=== PATIENT | female | born 1985 | race Caucasian/White ===

== ENCOUNTER 2017-10-08 03:15 | Observation (INO) | payer OTHER ==
--- NOTE | 2017-10-08 06:34 | OBPROG ---
Labor Progress Note Assessment/Plan: Assessment:cat 1 fhr hydration 1l water orally cat 1 fhr irregular contractions painful/ after hydration denies pain denies bleeding or leaking decreased movement/ after hydration feeling positive movement Plan:discharge to home with instructions to fu in clinic. Monitor movement,, discontinue at 31 weeks. 10/08/17 06:31 Subjective/Intrapartum Course: 10/08/17 06:29 Came in with complaint of regular contractions, pain, cramping and decreased movement. States still at 31 weeks. - Contraction Pattern Assessment Current Contraction Pattern: Irregular - FHR Assessment Parker FHR (bpm): 135 FHR Pattern Variability: Moderate FHR Category: 1 Oxytocin Orders Assessment - Pre-Induction/Augmentation Assessment Gestational Age: 83 week(s) and 0 day(s) ICD10 Worksheet Patient Problems: Problems Problem Status Onset decreased movement/irregular contr Acute
== END 2017-10-08 04:40 | disposition home or self-care (01) ==
LOC: FLD 03:15
PROVIDERS: ADMIT Advanced Practice Midwife; ATTEND Advanced Practice Midwife
DX: O36.8190 Decreased fetal movements, unspecified trimester, not applicable or unspecified (principal); Z3A.00 Weeks of gestation of pregnancy not specified
CPT/HCPCS: 59025; G0378

== ENCOUNTER 2017-12-03 16:53 | Observation (INO) | payer OTHER | END 2017-12-03 17:55 | disposition home or self-care (01) | LOC: FLD 16:53 → INTOOBSV 16:53 | PROVIDERS: ADMIT Obstetrics & Gynecology; ATTEND Obstetrics & Gynecology | DX: O46.93 Antepartum hemorrhage, unspecified, third trimester (principal); Z3A.38 38 weeks gestation of pregnancy | CPT/HCPCS: 59025; G0378 ==

== ENCOUNTER 2017-12-04 05:51 | Inpatient (IN) | payer OTHER ==
[2017-12-04] MEDS ORDERED: LR 1,000 ML IV PRN (06:13)
[2017-12-04] MEDS ORDERED: OXYTOCIN 20 UNIT in LR 1,000 ML IV PRN (06:13)
[2017-12-04] MEDS ORDERED: TERBUTALINE SULFATE 1 MG/ML VIAL IV PRN (06:13)
[2017-12-04] MEDS ORDERED: OLIVE OIL 118 ML BTL MISC PRN (06:13)
[2017-12-04] MEDS ORDERED: EPSOM SALT 454 GM TP PRN (06:13)
[2017-12-04] MEDS ORDERED: LR 500 ML IV PRN (06:14)
[2017-12-04] MEDS ORDERED: OXYTOCIN 30 UNIT in NS 500 ML IV SCH (06:15)
[2017-12-04 06:41] LABS: PLATELET COUNT 244 10^3/uL (150-400)
[2017-12-04] MEDS ORDERED: LIDOCAINE 1% 300 MG/30 ML SDV ONE (07:04)
[2017-12-04] MEDS ORDERED: AMMONIA AROMATIC 1 EACH AMP IH ONE (07:04)
[2017-12-04] MEDS ORDERED: TERBUTALINE SULFATE 1 MG/ML VIAL ONE (07:04)
[2017-12-04] MEDS ORDERED: OLIVE OIL 118 ML BTL ONE (07:04)
[2017-12-04] MEDS ORDERED: MISOPROSTOL 200 MCG TAB ONE (07:05)
[2017-12-04] MEDS ORDERED: OXYTOCIN 10 UNIT/ML VIAL ONE (07:05)
[2017-12-04] MEDS: AMPICILLIN SODIUM 1 GM in NS 50 ML IV SCH ×6 (07:55→21:05)
[2017-12-04] MEDS ORDERED: fentaNYL 100 MCG/2 ML INJ ONE (13:08)
[2017-12-04] MEDS ORDERED: BUPIVACAINE 0.5% 30 ML SDV ONE (13:08)
[2017-12-04] MEDS ORDERED: PHENYLEPHRINE HCL 100 MCG/ML SYR ONE (13:09)
[2017-12-04] MEDS ORDERED: fentaNYL 2MCG/ML/BUP 0.1% RTU 100 ML BAG EP ONE (13:09)
--- NOTE | 2017-12-04 13:10 | GHP ---
[f rep st] PREOP HISTORY AND PHYSICAL DATE OF ADMISSION: 12/04/2017 ADMITTING DIAGNOSES: Intrauterine at 39 weeks' gestation, with induction of labor secondary to suspected large for gestational age and polyhydramnios. HISTORY OF PRESENT ILLNESS: The patient is a 32-year-old 2, para 1-0-0- 1, with a last menstrual period of 03/06/2017, and an EDC of 12/11/2017, which was confirmed by a first-trimester ultrasound. She was a transfer of care to [facility] at 29 weeks. She moved from [place]. She has had good care. Her course has been complicated for large for gestational age. Most recent ultrasound revealed estimated weight of 90th percentile, as well as polyhydramnios. Most recent BUNNY was 24.9. The patient was monitored closely for her polyhydramnios with twice weekly nonstress test. Baby was reassuring, and patient was offered induction of labor at 39 weeks, which she accepted. Her cervix on admission is 3 cm, 50%, - 2 and she was admitted for Pitocin induction of labor. PAST OBSTETRICAL HISTORY: In July of 2014 she had a viable male, weight 7 pounds 8 ounces. He was an induction of labor. Had a long labor and 3- hour second stage, and this is her second . PAST GYNECOLOGICAL HISTORY: She has a remote history of abnormal Paps over 10 years ago. She had colposcopy. No other treatment. She also had a history of ovarian cyst with a Mirena IUD. No treatment or surgeries were necessary. She has a history of HSV-1, just cold sores. No genital outbreaks. Takes acyclovir or Valtrex as needed. No history of any sexually transmitted diseases. PAST MEDICAL HISTORY: None. PAST SURGICAL HISTORY: None. ALLERGIES: No known drug allergies. MEDICATION: vitamins, DHEA, and valacyclovir or acyclovir. LABS: O-positive, antibody negative, rubella immune, hepatitis negative, HIV negative, cystic fibrosis, SMA, fragile X negative, Verifi was negative. First- trimester screen negative. Pap normal. Gonorrhea and chlamydia normal. 1- hour GTT was 76. GBS is positive. SOCIAL HISTORY: She is . She lives with her and her son. She is self-employed. She denies tobacco, alcohol, and drug use. FAMILY HISTORY: Father has hypercholesterolemia. Maternal grandmother had a stroke. Nothing else significant. REVIEW OF SYSTEMS: Negative today. PHYSICAL EXAMINATION: VITAL SIGNS: Currently, she is afebrile. Vital signs are stable. heart tones are 130s, reactive, moderate variability, category 1. She is elo every 2-3 minutes. She is on Pitocin. I just checked her cervix. She is 3 cm, 80%, -1 station, and AROM for a copious amount of clear fluid. ASSESSMENT AND PLAN: 32-year-old 2, para 1-0-0-1, at 39 weeks' gestation, for elective induction of labor secondary to suspected large for gestational age and polyhydramnios. The patient desires an epidural for pain control. Will have when she desires it in labor, and active labor management. status is reassuring. /[id number]/MODL MTDD
[2017-12-04] MEDS ORDERED: PHENYLEPHRINE HCL 100 MCG/ML SYR IVP PRN (13:46)
[2017-12-04] MEDS ORDERED: ONDANSETRON 4 MG/2 ML VIAL IVP PRN (13:46)
--- NOTE | 2017-12-04 13:46 | PREANESOB ---
Obstetric Pre-Anesthesia Info - General Info Proposed Procedure: KIM : 3 Para: 1 DEMETRIUS: 12/11/17 Gestational Age: 39 week(s) and 0 day(s) - Info Status: Full Term Monitors: External FHR Pattern: Reassuring - Labor Status Cervical Dilation per last OB SVE: 4 Station per last OB SVE: -1 Amniotic Fluid Color: Clear Labor Epidural: Proposed Anesthesia ROS: negative Allergies/Adverse Reactions: Allergy/AdvReac Type Severity Reaction Status Date / Time No Known Allergies Allergy Unverified 10/08/17 03:51 Visit Medications: Generic Name Dose Route Start Last Admin Trade Name Freq PRN Reason Stop Dose Admin Ampicillin Sodium 1 gm/ Sodium 50 mls @ 100 mls/hr 12/04/17 07:13 12/04/17 12 :05 Chloride IV 01/03/18 07:12 50 mls Q4H PINEDA Administration Protocol Lactated Ringer's 1,000 mls @ 0 mls/hr 12/04/17 06:13 12/04/17 07:00 Lr IV 12/05/17 06:12 1,000 mls PRN PRN Administration SEE PROTOCOL CONDITIONS Protocol Per Protocol Oxytocin 20 unit/ Lactated 1,002 mls @ 150 mls/hr 12/04/17 06:13 Ringer's IV PRN PRN Post- bleeding Lactated Ringer's 500 mls @ 500 mls/hr 12/04/17 06:14 Lr IV 12/05/17 06:14 PRN PRN Maternal Hypotension Oxytocin 30 unit/ Sodium 503 mls @ 0 mls/hr 12/04/17 06:15 12/04/17 07:35 Chloride IV 06/02/18 06:14 503 mls CONT PINEDA Administration Protocol Per Protocol Ibuprofen 600 mg 12/04/17 06:13 Motrin PO 06/02/18 06:12 Q6HRS PRN post , inflammation Magnesium Sulfate 454 gm 12/04/17 06:13 Epsom Salt TP 06/02/18 06:12 Q1H PRN perineal discomfort [place] Oil 118 ml 12/04/17 06:13 Sweet Oil MISC 06/02/18 06:12 ONCE PRN perineal massage Terbutaline Sulfate 0.25 mg 12/04/17 06:13 Brethine IV 06/02/18 06:12 ONCE PRN Tachysystole Discontinued Medications Generic Name Dose Route Start Last Admin Trade Name [place] PRN Reason Stop Dose Admin Ammonia (Aromatic Spirit) Confirm 12/04/17 07:04 Ammonia Aromatic Administered 12/04/17 07:05 Dose 1 each IH .STK-MED ONE Bupivacaine HCl Confirm 12/04/17 13:08 Sensorcaine 0.5% Vial Administered 12/04/17 13:09 Dose 30 ml .ROUTE .STK-MED ONE Fentanyl Confirm 12/04/17 13:08 Sublimaze Administered 12/04/17 13:09 Dose 100 mcg .ROUTE .STK-MED ONE Fentanyl/Bupivacaine HCl Confirm 12/04/17 13:09 Fentanyl/Bupivacaine/Ns 2 Mcg/Ml 0.1% (Premix Administered 12/04/17 13:10 Dose 100 ml EP .STK-MED ONE Ampicillin Sodium 1 gm/ Sodium 50 mls @ 100 mls/hr 12/04/17 06:15 12/04/17 07 :55 Chloride IV 12/04/17 07:14 50 mls Q30M PINEDA Administration Protocol Lidocaine HCl Confirm 12/04/17 07:04 Lidocaine Hcl 1% Administered 12/04/17 07:05 Dose 300 mg .ROUTE .STK-MED ONE Misoprostol Confirm 12/04/17 07:05 Cytotec Administered 12/04/17 07:06 Dose 1,000 mcg .ROUTE .STK-MED ONE [place] Oil Confirm 12/04/17 07:04 Sweet Oil Administered 12/04/17 07:05 Dose 118 ml .ROUTE .STK-MED ONE Oxytocin Confirm 12/04/17 07:05 Pitocin Administered 12/04/17 07:06 Dose 40 unit .ROUTE .STK-MED ONE Phenylephrine HCl Confirm 12/04/17 13:09 Neosynephrine Administered 12/04/17 13:10 Dose 1,000 mcg .ROUTE .STK-MED ONE Terbutaline Sulfate Confirm 12/04/17 07:04 Brethine Administered 12/04/17 07:05 Dose 1 mg .ROUTE .STK-MED ONE - Anesthesia History Response to Local Anesthetics: Normal Anesthesia & Operative History: No Prior Problems Family Anesthesia History: Not Applicable - Social History Substance Use/Abuse: Denies - Vital Signs Latest Vital Signs (Nursing): see nsg notes Height/Weight (Nursing): Height 152.4 cm Weight 90.265 kg - Focused Exam Neck exam: FROM Mallampati Score: Class 2 Mouth exam: normal dental/mouth exam Pulmonary: no respiratory distress Cardiovascular: regular rate and rhythym Labs: 12/04/17 06:25 Patient ABO/Rh O POSITIVE 12/04/17 06:25 - Plan Consent Signed and on Chart: Yes Patient/Guardian Understands and Agrees to Plan: Yes Urgent/Emergent Case: Zuleika mata completed preop but documented later for safe timely pt care
[2017-12-04] MEDS ORDERED: fentaNYL 2MCG/ML/BUP 0.1% RTU 100 ML EP SCH (14:00)
[2017-12-04] MEDS ORDERED: LR 500 ML IV SCH (14:00)
--- NOTE | 2017-12-04 14:46 | OBPROG ---
Labor Progress Note Assessment/Plan: Assessment: 32 y/o @ 39 weeks elective IOL secondary to LGA and polyhydramnios Plan: Pt comfortable with her epidural and making good cx progression. Will check in 2 hours or prn sooner. 12/04/17 14:46 Subjective/Intrapartum Course: 12/04/17 14:37 Pt is doing well now, comfortable with her epidural. Objective: 12/04/17 06:25 Patient ABO/Rh O POSITIVE 12/04/17 06:25 - SVE Dilation (cm): 7 Effacement (%): 90 Station: 0 Membranes: AROM Amniotic Fluid Color: Clear - Contraction Pattern Assessment Current Contraction Pattern: Regular (/q 2 ) - FHR Assessment Parker FHR (bpm): 130 FHR Pattern Variability: Moderate FHR Category: 1 - Procedures Non-surgical Procedures: Amniotomy - AP Antepartum Course: 12/04/17 14:38 transfer of care @ 29 weeks, h/o LGA and polyhydramnios Oxytocin Orders Assessment - Pre-Induction/Augmentation Assessment Gestational Age: 39 week(s) and 0 day(s) ICD10 Worksheet Patient Problems: Problems Problem Status Onset Encounter for elective induction of labor Acute - ICD10 Problem Qualifiers (1) Encounter for elective induction of labor
[2017-12-04] MEDS ORDERED: HYDROCORTISONE 0.5% CREAM TP PRN (17:31)
[2017-12-04] MEDS ORDERED: ACETAMINOPHEN 325 MG TAB PO PRN (17:31)
[2017-12-04] MEDS ORDERED: SIMETHICONE 80 MG TAB CHEW PO PRN (17:31)
[2017-12-04] MEDS ORDERED: HYDROCODONE/APAP 5/325 TAB PO PRN (17:31)
--- NOTE | 2017-12-04 17:35 | OBDEL ---
Info Type: Vaginal Presentation at Delivery: Vertex L&D Analgesia/Anesthesia Type: Epidural GBS+: Yes Antibiotic Used for + GBS: Ampicillin Intrapartum Medications: Generic Name Dose Route Start Last Admin Trade Name Freq PRN Reason Stop Dose Admin Ampicillin Sodium 1 gm/ Sodium 50 mls @ 100 mls/hr 12/04/17 07:13 12/04/17 15 :46 Chloride IV 01/03/18 07:12 50 mls Q4H PINEDA Administration Protocol Lactated Ringer's 1,000 mls @ 0 mls/hr 12/04/17 06:13 12/04/17 07:00 Lr IV 12/05/17 06:12 1,000 mls PRN PRN Administration SEE PROTOCOL CONDITIONS Protocol Per Protocol Oxytocin 30 unit/ Sodium 503 mls @ 0 mls/hr 12/04/17 06:15 12/04/17 07:35 Chloride IV 06/02/18 06:14 503 mls CONT PINEDA Administration Protocol Per Protocol Discontinued Medications Generic Name Dose Route Start Last Admin Trade Name Freq PRN Reason Stop Dose Admin Ampicillin Sodium 1 gm/ Sodium 50 mls @ 100 mls/hr 12/04/17 06:15 12/04/17 07 :55 Chloride IV 12/04/17 07:14 50 mls Q30M PINEDA Administration Protocol - Hospital Course Intrapartum: 12/04/17 14:37 Pt is doing well now, comfortable with her epidural. Indications for Delivery: Elective, Suspected Macrosomia (polyhydramnios) Vaginal Delivery - Delivery Provider Delivery Physician/CNM: Krista Peterson (Celsa Garcia RN in attendence precipitous delivery) - Labor and Delivery Onset of Contractions Date: 12/04/17 Onset of Contractions Time: 12:30 Onset of Contractions Type: Induced Rupture of Membranes Date: 12/04/17 Rupture of Membranes Time: 12:18 Rupture of Membranes Type: Artificial Amniotic Fluid Color: Clear Dilation Complete Date: 12/04/17 Dilation Complete Time: 15:50 Placenta Delivery Date: 12/04/17 Placenta Delivery Time: 17:17 Total Hours of Labor: 4 Non-surgical Procedures: Amniotomy Laceration: Other (Specify) (left vaginal wall polyp removed per patient request , repaired with 3-o vicryl) Repair: 2-0, 3-0, Vicryl Vaginal Sponge Count Correct: Yes Vaginal Needle Count Correct: Yes Vaginal Sweep Performed: No EBL: 250 Delivery Events: None - Medications Labor Augmentation/Induction Methods Used: Pitocin Labor Augmentation/Induction Indication: LGA, Other (Specify) (polyhydramnios) [place] Data DEMETRIUS: 12/11/17 Gestational Age: 39 week(s) and 0 day(s) Parker Delivery Date: 12/04/17 Delivery Time: 17:11 Sex of : Male Score (1 Min): 8 Score (5 Min): 9 ICD10 Worksheet Patient Problems: Problems Problem Status Onset Encounter for elective induction of labor Acute (spontaneous vaginal delivery) Acute - ICD10 Problem Qualifiers (1) Encounter for elective induction of labor (2) (spontaneous vaginal delivery)
[2017-12-04] MEDS: IBUPROFEN 600 MG TAB PO PRN (18:53)
[2017-12-05] MEDS: IBUPROFEN 600 MG TAB PO PRN ×4 (01:59→21:26)
[2017-12-05] MEDS: DOCUSATE SODIUM 100 MG CAP PO PRN ×2 (08:42→21:26)
--- NOTE | 2017-12-05 08:47 | OBPP ---
Progress Note Assessment/Plan: Assessment: s/p PPD # 1 - pt is stable Plan: Continue routine pp care Will discharge home if baby boy is discharged Instructions reviewed with pt No Rx given Cont PNV, colace Pelvic rest RTC in 4 and 6 weeks for pp visit 12/05/17 08:43 Objective: 12/04/17 06:25 Patient ABO/Rh O POSITIVE 12/04/17 06:25 Temp Pulse Resp BP Pulse Ox 36.4 C 87 99 H 97/66 L 16 L 12/05/17 07:52 12/05/17 07:52 12/05/17 07:52 12/05/17 07:52 12/05/17 07:52 Uterine Position/Fundal Height: Umbilicus -2 Uterine Tone: Firm Physical Exam - Physical Exam Respiratory: lungs clear, normal breath sounds Cardiac/Chest: regular rate, rhythm Abdomen: normal bowel sounds, non-tender, soft, flatus (+) Extremities: non-tender, normal inspection Skin: normal color, warm/dry Neuro/Psych: alert, normal mood/affect, oriented x 3
--- NOTE | 2017-12-05 08:48 | OBGCSDC ---
General Delivery Information - General Info : 3 Para: 2 Abortions: 1 Type: Vaginal L&D Analgesia/Anesthesia Type: Epidural Admission Date: 12/04/17 Labs: Patient ABO/Rh O POSITIVE 12/04/17 06:25 Hct 39.8 % (38.0-47.0) 12/04/17 06:25 - Hospital Course Antepartum: 12/04/17 14:38 transfer of care @ 29 weeks, h/o LGA and polyhydramnios Intrapartum: 12/04/17 14:37 Pt is doing well now, comfortable with her epidural. Vaginal - Delivery Provider Delivery Physician/CNM: Krista Peterson (Celsa Garcia RN in attendence precipitous delivery) - Diagnosis Labor: Induced Rupture of Membranes Type: Artificial Amniotic Fluid Color: Clear Laceration: Other (Specify) (left vaginal wall polyp removed per patient request , repaired with 3-o vicryl) Repair: 2-0, 3-0, Vicryl Delivery Events: None - Procedures Non-surgical Procedures: Amniotomy - Delivery Non-surgical Procedures: Amniotomy EBL: 250 Nelson Data DEMETRIUS: 12/11/17 Gestational Age: 39 week(s) and 1 day(s) Parker Delivery Date: 12/04/17 Delivery Time: 17:11 Sex of : Male Score (1 Min): 8 Score (5 Min): 9 Discharge Information - Discharge Information Condition: Good Instruction/Follow Up: Four Weeks, Six Weeks
[2017-12-06] MEDS: IBUPROFEN 600 MG TAB PO PRN ×2 (03:30→09:29)
[2017-12-06 08:41] VITALS: BP 114/72; PULSE 85; RESP 17; TEMP 96.9; O2SAT 96
[2017-12-06] MEDS: DOCUSATE SODIUM 100 MG CAP PO PRN (09:29)
--- NOTE | 2017-12-06 10:23 | OBPP ---
Progress Note Assessment/Plan: Assessment: PPD 2 s/p Plan: D/C home 12/06/17 10:20 Subjective/ Course: 12/06/17 10:21 Pt doing well. Baby has been latching well. [place] milk is starting to come in which is quicker than last baby. Bld is light. urinating fine. Cramps are tolerable with ibu. Objective: 12/04/17 06:25 Patient ABO/Rh O POSITIVE 12/04/17 06:25 Temp Pulse Resp BP Pulse Ox 36.1 C 85 17 114/72 96 12/06/17 08:00 12/06/17 08:00 12/06/17 08:00 12/06/17 08:00 12/06/17 08:00 Uterine Position/Fundal Height: Umbilicus -1 Uterine Tone: Firm Physical Exam - Physical Exam Abdomen: non-tender, soft Extremities: non-tender, pedal edema (moderate) Skin: normal color, warm/dry Neuro/Psych: alert, normal mood/affect
== END 2017-12-06 11:15 | disposition home or self-care (01) | DRG 775 ==
LOC: FLD 05:51 → FOB 20:00
PROVIDERS: ADMIT Obstetrics & Gynecology; ATTEND Obstetrics & Gynecology
PROC: 0UBGXZZ Excision of Vagina, External Approach (ICD-10-PCS; principal; 2017-12-04)
PROC: 10E0XZZ Delivery of Products of Conception, External Approach (ICD-10-PCS; principal; 2017-12-04)
PROC: 3E033VJ Introduction of Other Hormone into Peripheral Vein, Percutaneous Approach (ICD-10-PCS; principal; 2017-12-04)
PROC: 10907ZC Drainage of Amniotic Fluid, Therapeutic from Products of Conception, Via Natural or Artificial Opening (ICD-10-PCS; principal; 2017-12-04)
DX: O40.3XX0 Polyhydramnios, third trimester, not applicable or unspecified (principal); O36.63X0 Maternal care for excessive fetal growth, third trimester, not applicable or unspecified; O26.893 Other specified pregnancy related conditions, third trimester; N84.2 Polyp of vagina; Z3A.39 39 weeks gestation of pregnancy; Z37.0 Single live birth
CPT/HCPCS: J0290; J2370; J3010; J3105